=== PATIENT | female | born 1990 | race Caucasian/White ===

== ENCOUNTER 2018-10-30 17:23 | Emergency (ER) | payer OTHER ==
[2018-10-30] MEDS ORDERED: HYDROMORPHONE 1 MG/ML SYRINGE IV ONE ×2 (17:55→19:00)
[2018-10-30] MEDS ORDERED: ONDANSETRON HCL 4 MG/2 ML SOL IV ONE (17:55)
[2018-10-30] MEDS ORDERED: SODIUM CHLORIDE 0.9% 1000ML 1,000 ML IV SCH (18:00)
[2018-10-30] MEDS ORDERED: ONDANSETRON HCL 4 MG/2 ML SOL ONE (18:02)
[2018-10-30] MEDS ORDERED: HYDROMORPHONE 1 MG/ML SYRINGE ONE (18:02)
[2018-10-30 18:12] LABS: BASOPHILS % (AUTO) 0 % (0-3); EOSINOPHILS % (AUTO) 1 % (0-9); HEMATOCRIT 45 % (35-47); HEMOGLOBIN 15.1 gm/dl (12.0-15.5); LYMPHOCYTES % (AUTO) 7.4 % (10-50); MEAN CORPUSCULAR HEMOGLOBIN 27.1 pg (27.0-32.0); MEAN CORPUSCULAR HGB CONC 33.4 gm/dl (32.0-36.0); MONOCYTES % (AUTO) 4.6 % (0-12); NEUTROPHILS % (AUTO) 87.2 % (37-80)
[2018-10-30 18:13] LABS: MEAN CORPUSCULAR VOLUME 81 fL (81-99)
[2018-10-30 18:14] LABS: APPEARANCE,URINE Clear; BILIRUBIN,URINE 1+ (NEGATIVE); COLOR,URINE Yellow; GLUCOSE, URINE (UA) NEGATIVE (NEGATIVE); KETONES,URINE TRACE (NEGATIVE); LEUKOCYTE ESTERASE ,URINE NEGATIVE (NEGATIVE); NITRATE,URINE NEGATIVE (NEGATIVE); OCCULT BLOOD,URINE NEGATIVE (NEG-TRACE); UROBILINOGEN,URINE 0.2 (0.2-1.0 EU)
[2018-10-30 18:20] LABS: CALCIUM 9.3 mg/dl (8.5-10.1); CARBON DIOXIDE 19.2 mEq/L (21-32); CREATININE 0.97 mg/dl (0.60-1.00); POTASSIUM 3.9 mMol/L (3.5-5.1)
[2018-10-30 18:26] LABS: ICTOTEST,URINE NEGATIVE (NEGATIVE)
[2018-10-30 18:27] LABS: BACTERIA 1+ (< 1+); CRYSTALS NEGATIVE (0-3 AVE/HPF); RBC,URINE 0-2 (0-3AV/HPF)
[2018-10-30 21:07] VITALS: RESP 18
[2018-10-30 21:08] VITALS: BP 101/60; PULSE 90; TEMP 97.8; O2SAT 99
== END 2018-10-30 20:50 | disposition home or self-care (01) | DRG 392 ==
LOC: ED 17:23
DX: K52.9 Noninfective gastroenteritis and colitis, unspecified (principal); R10.9 Unspecified abdominal pain
CPT/HCPCS: 74176; 80048; 81001; 85025; 96365; 96366; 96374; 96375; 99283; 99285; J2405; J1170